=== PATIENT | female | born 1950 | race Caucasian/White ===

== ENCOUNTER 2018-03-27 08:46 | Emergency (ER) | payer OTHER ==
[~2018-03-27] VITALS: Ht 149.8 cm; Wt 82.6 kg
--- NOTE | ~2018-03-27 | EKG ---
[place], [place] ELECTROCARDIOGRAM REPORT NAME: JOANIE THACKER UNIT #: [id number] ROOM: DOCTOR: SUGAR DRAFT REPORT BIRTHDATE: [birth year] [facility] Test Date: 2018-03-27 Test Time: 09:48:00 Pat Name: JOANIE THACKER Department: Room: Gender: F Overnight Houseperson: Delmy Santillan : 1950 Requested By: TEREZA SALAZAR Order Number: [id number] Reading MD: Macario Anthony MD Measurements Intervals Louise Rate: 85 P: 61 WV: 148 QRS: -12 QRSD: 86 T: 32 QT: 360 QTc: 428 Interpretive Statements Sinus rhythm Probable left atrial enlargement Poor precordial R-wave progression Baseline wander in lead(s) V1 Electronically Signed On 03-28-2018 4:12:42 PST by Macario Anthony MD CM:EKGRPT:ELECTROCARDIOGRAM REPORT [id number] TEREZA LAZO DRAFT REPORT TEREZA SALAZAR DO
[~2018-03-27 08:46] MED LIST: ASPIR-LOW81 MG PO; HYDREA500 MG PO; LOTREL 5 MG-101 CAP PO; LUNESTA1 MG PO; MOTRIN800 MG PO; PERCOCET 325 MG1 TA2 PO; SYNTHROID,LEV100 MCG PO; ZOLOFT50 MG PO; [UNRECOGNIZED DRUG - OTHER] PO
[2018-03-27 09:23] LABS: HEMOGLOBIN 15.5 g/dl (12.0-16.0); MEAN CELL VOLUME 90.3 fl (81.0-99.0); MEAN CORPUSCULAR HGB 27.4 pg (27.0-31.0); MEAN CORPUSCULAR HGB CONC 30.4 g/dl (33.0-37.0); MEAN PLATELET VOLUME 11.3 fl (9.6-12.3); PLATELET COUNT AUTOMATED 526 10*3/uL (130-400); RED BLOOD COUNT 5.65 10*6/uL (4.10-5.10); RED CELL DISTRI WIDTH 18.4 % (0-14.5); WHITE BLOOD COUNT 14.6 10*3/uL (4.8-10.8)
[2018-03-27 09:27] LABS: BILIRUBIN NEGATIVE (NEGATIVE); BLOOD NEGATIVE (NEGATIVE); CLARITY CLEAR (CLEAR); COLOR YELLOW (YELLOW); GLUCOSE NEGATIVE (NEGATIVE); KETONE NEGATIVE (NEGATIVE); LEUKO ESTERASE NEGATIVE (NEGATIVE); NITRITE NEGATIVE (NEGATIVE); SPECIFIC GRAVITY <= 1.005 (1.005-1.030); UROBILINOGEN 0.2 E.U./dl (0.2-1.0)
[2018-03-27 09:33] LABS: ACT PARTIAL THROMBO TIME 25.2 SECONDS (20.8-31.5); INTERNATIONAL NORM RATIO 1.1 (2.0-3.5)
[2018-03-27 09:38] LABS: ALBUMIN 3.9 gm/dl (3.1-4.5); ALKALINE PHOSPHATASE 125 U/L (45-117); BUN 17 mg/dl (7-24); CHLORIDE 101 mmol/L (98-107); CREATININE 1.05 mg/dL (0.55-1.02); LIPASE 101 U/L (73-393); POTASSIUM 4.2 mmol/L (3.5-5.1); SGOT/AST 18 IU/L (3-35); SGPT/ALT 16 U/L (12-78); SODIUM 135 mmol/L (136-145); TOTAL PROTEIN 7.9 gm/dL (6.4-8.2)
[2018-03-27 09:44] LABS: BASOPHILS 1 % (0-1); TOTAL CELLS COUNTED 100 #CELLS
[2018-03-27 09:45] LABS: PLATELET SUFFICIENCY HIGH (NORMAL); POLYCHROMASIA SLIGHT; ROULEAUX SLIGHT
[2018-03-27 09:45] LABS: EPITHELIAL CELLS 16-20; RBC 0-2 rbc/hpf (0-2)
[2018-03-27 09:48] LABS: TROPONIN I < 0.015 ng/ml (<0.045)
[2018-03-27] MEDS ORDERED: PREDNISONE50 MG PO (13:33)
[2018-03-27] MEDS ORDERED: CYCLOBENZAPRINE10 MG PO (13:33)
== END 2018-03-27 13:53 | disposition home or self-care (01) ==
LOC: ED 08:46
PROVIDERS: Emergency Medicine
DX: S39.012A Strain of muscle, fascia and tendon of lower back, initial encounter (principal); Z88.8 Allergy status to other drugs, medicaments and biological substances; Z79.899 Other long term (current) drug therapy; Z79.82 Long term (current) use of aspirin; Z90.710 Acquired absence of both cervix and uterus; X58.XXXA Exposure to other specified factors, initial encounter; Y93.89 Activity, other specified; Y92.89 Other specified places as the place of occurrence of the external cause; Y99.8 Other external cause status

== ENCOUNTER → 2019-03-07 | Outpatient (CLI) | payer OTHER ==
[~2019-03-07] MED LIST changes: +CYCLOBENZAPRINE10 MG PO; +LOTREL 10-20 M1 EACH PO; -LOTREL 5 MG-101 CAP PO; -LUNESTA1 MG PO; +LUNESTA2 MG PO; +PREDNISONE50 MG PO; +PRESERVISION A1 EAC1 PO; -SYNTHROID,LEV100 MCG PO; +SYNTHROID,LEV112 MCG PO; +ZOLOFT100 MG PO; -ZOLOFT50 MG PO
--- NOTE | ~2019-03-07 | ST ---
[place], [place] EXERCISE STRESS TEST REPORT NAME: JOANIE THACKER UNIT #: [id number] ROOM: DOCTOR: ELLEN KEY,DAVID BIRTHDATE: [birth year] DOS: 03/07/2019 LEXISCAN STRESS TEST REASON FOR TEST: The patient's shortness of breath and heart murmur. PHYSICAL EXAMINATION: NECK: Supple. LUNGS: Clear anteriorly. HEART: Regular rhythm, grade 3/6 systolic murmur. PROTOCOL: Lexiscan protocol. Maximum heart rate 102, peak blood pressure 138/60. SYMPTOMS: The patient is chest pain free. EKG: Resting EKG shows sinus rhythm. Stress EKG showed no ischemia, no arrhythmias. CONCLUSION: Clinically, the patient is chest pain free. EKG nonischemic. POST-STRESS COMPLICATIONS: None. The patient received total of 0.4 mg Lexiscan. DAVID HUGHES MD CM:STRESS:EXERCISE STRESS TEST REPORT [id number] DAVID HUGHES MD
--- NOTE | 2019-03-07 09:58 | NUR ---
INFORMED SIGNED CONSENT OBTAINED FOR LEXISCAN STRESS TEST WITH DR HUGHES. RESTING EKG NSR HR 90 BP 128/60. PULSE OX 98% LUNGS CLEAR. INVERTED T WAVE AVL V1-V2. PT COMPLETED ONE MINUTE OF A LEXISCAN PROTOCOL WITH PT RECEIVING LEXISCAN 0.4MG IV OVER 10 SECONDS. NO ARRHYTHMIAS OR ST CHANGES NOTED. PT HAD AN ODD FEELING WITH INJECTION. LAST RECOVERY HR OF 99 BP 130/64. PT IN STABLE CONDITION, AWAITING NUCLEAR IMAGES.
== END | disposition home or self-care (01) ==
LOC: CARD 03-05 09:00
DX: R06.02 Shortness of breath (principal); E03.9 Hypothyroidism, unspecified